=== PATIENT | male | born 1965 | race Caucasian/White ===

== ENCOUNTER 2017-11-28 11:39 | Emergency (ER) | payer OTHER ==
[~2017-11-28] VITALS: Ht 175.3 cm; Wt 91.0 kg
[2017-11-28 12:01] LABS: HEMATOCRIT 47.7 % (38.0-50.0); MCH 29.4 PG (29.0-34.0); MCHC 33.5 G/DL (30.0-36.0); MCV 87.7 FL (86-99); PLATELET COUNT 306 K/uL (156-360); RBC DIS.WIDTH-CV 12.6 % (11.8-14.6); RBC DIS.WIDTH-SD 40.5 % (39-53); RED BLOOD COUNT 5.44 M/uL (4.00-5.50)
[2017-11-28 12:10] LABS: CHLORIDE 100 mEq/L (99-109); POTASSIUM 3.8 mEq/L (3.7-5.4); SODIUM 139 mEq/L (136-147)
[2017-11-28 12:12] LABS: GLUCOSE 110 mg/dL (70-99); TOTAL PROTEIN 8.4 g/dL (6.4-8.3)
[2017-11-28 12:14] LABS: TOTAL BILIRUBIN 1.4 mg/dL (0.0-1.0)
[2017-11-28 12:16] LABS: ALKALINE PHOSPHATASE 103 IU/L (3-129); GFR ESTIMATE (CALCULATED) > 59 mL/min/ (58.99-99999)
[2017-11-28 12:17] LABS: AST (GOT) 14 IU/L (2-34); UREA NITROGEN (BUN) 9 mg/dL (9-23)
[2017-11-28 12:19] LABS: ALT (GPT) 21 IU/L (3-49); LIPASE 16 U/L (1.0-51.0)
[2017-11-28] MEDS ORDERED: COLACE100 MG PO (13:16)
[2017-11-28 13:37] VITALS: BP 141/77
== END 2017-11-28 13:44 | disposition home or self-care (01) ==
LOC: EME 11:39
DX: R10.84 Generalized abdominal pain (principal); R11.0 Nausea; K42.9 Umbilical hernia without obstruction or gangrene; K76.0 Fatty (change of) liver, not elsewhere classified
CPT/HCPCS: 74177; 80053; 81003; 83690; 85027; 99281; 99284; J7030